=== PATIENT | male | born 1995 | race Two or more races ===

== ENCOUNTER 2021-04-11 13:56 | Emergency (ER) | payer SELFPAY ==
[~2021-04-11] VITALS: Ht 172.7 cm; Wt 65.9 kg
[2021-04-11] MEDS ORDERED: TETanus/Pertussis (Acell)/Diphther VAC/PF (Tdap-Adult) 0.5ml syringe IMVAC ONE (14:05)
[2021-04-11 14:20] VITALS: BP 133/70
--- NOTE | 2021-04-11 14:20 | NUR ---
Pt. seen, evaluated, and placed ready for discharge prior to RN intervention
== END 2021-04-11 14:24 | disposition home or self-care (01) ==
LOC: ER 13:57
DX: S80.811A Abrasion, right lower leg, initial encounter (principal); Z20.3 Contact with and (suspected) exposure to rabies; W54.0XXA Bitten by dog, initial encounter; Y93.89 Activity, other specified; Y92.89 Other specified places as the place of occurrence of the external cause; Y99.8 Other external cause status
CPT/HCPCS: 90471; 90715; 99283